=== PATIENT | female | born 1945 | race Caucasian/White ===

== ENCOUNTER → 2016-10-20 | Outpatient (CLI) | payer OTHER ==
[2016-10-20 08:27] LABS: HEMATOCRIT 45.2 % (37.0-47.0); MCH 30.5 pg (26.0-34.0); MCHC 33.1 g/dL (28.0-37.0); MCV 92.2 fL (80.0-100.0); RBC 4.9 mil/uL (4.20-5.00); RDW 14.2 % (10.5-14.5); WBC 11.8 thou/uL (4.0-11.0)
[2016-10-20 09:02] LABS: CALCIUM 9.2 mg/dL (8.5-10.1); CREATININE 0.8 mg/dL (0.6-1.0)
[2016-10-20 09:04] LABS: POTASSIUM 4.3 mmol/L (3.5-5.1)
[2016-10-20 09:09] LABS: ALBUMIN 3.7 g/dL (3.4-5.0); TOTAL BILIRUBIN 0.7 mg/dL (<0.1-1.0); TOTAL PROTEIN 7.7 g/dL (6.4-8.2)
== END ==
LOC: CAT 08:00
PROVIDERS: Internal Medicine Cardiovascular Disease
DX: I48.91 Unspecified atrial fibrillation (principal)

== ENCOUNTER 2016-10-27 06:36 | Observation (INO) | payer OTHER ==
[~2016-10-27] VITALS: Ht 167.6 cm; Wt 91.9 kg
--- NOTE | ~2016-10-27 | 2DMMODE ---
[address] [address] D/M-MODE ECHOCARDIOGRAM Name: JOSE R CALLOWAY Room #: 200-I ADM IN .R.#: [id number] Admission: 10/27/16 Attend Phys: Hunter Trujillo Discharge: Date of : 47 Date of Service: 10/28/16 1320 Report #: [id number] THIS REPORT FOR: //name// APPROVED REPORT Study performed: 10/28/2016 11:19:11 EXAM: Comprehensive 2D, Doppler, and color-flow Echocardiogram Patient Location: Bedside Room #: 200 Status: routine Other Information Study Quality: Good Indications S^P abblation Left Ventricle The left ventricle is normal size. There is normal left ventricular wall thickness. The left ventricular systolic function is normal. The left ventricular ejection fraction is within the normal range. LVEF is 55-60%. Right Ventricle The right ventricle is normal size. The right ventricular systolic function is normal. Atria Left atrium is dilated. Right atrium is dilated. Aortic Valve The aortic valve is normal in structure. Mitral Valve The mitral valve is normal in structure. Tricuspid Valve The tricuspid valve is normal in structure. Pulmonic Valve The pulmonary valve is normal in structure. Pericardium There is no pericardial effusion. [address] [address] D/M-MODE ECHOCARDIOGRAM Name: JOSE R CALLOWAY Room #: 200-I ADM IN .R.#: [id number] Admission: 10/27/16 Attend Phys: [facility] Discharge: Date of : 47 Date of Service: 10/28/16 1320 Report #: [id number] <Conclusion> The left ventricle is normal size. The left ventricular systolic function is normal. The left ventricular ejection fraction is within the normal range. LVEF is 55-60%. Left atrium is dilated. The tricuspid valve is normal in structure. <ELECTRONICALLY SIGNED> By: Mukesh Colunga MD 10/28/160 19 19 Mukesh Colunga MD /INF
--- NOTE | ~2016-10-27 | EKG ---
[address] [place] [address] ELECTROCARDIOGRAM REPORT Name: JOSE R CALLOWAY Room #: 206-[facility]..#: [id number] Admission: 10/27/16 Attend Phys: Hunter Trujillo MD Discharge: Date of : 47 Report #: [id number] THIS REPORT FOR: //name// 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 : 1945 Requested By: Hunter Trujillo Order Number: [id number] MD: Joaquim Kumar Measurements Intervals [place] Rate: 73 P: -30 TN: 193 QRS: -1 QRSD: 96 T: 36 QT: 354 QTc: 390 Interpretive Statements Sinus rhythm LVH with secondary repolarization abnormality Compared to ECG 10/27/2016 12:47:02 Left ventricular hypertrophy now present T wave abnormality is less prominent Prolonged QT interval no longer present Electronically Signed On 10-29-2016 8:37:25 CDT by Joaquim Kumar [email or web address] <ELECTRONICALLY SIGNED> By: Joaquim Kumar MD, [facility] 10/29/16 0837 06 06 Joaquim Kumar MD, [facility] /EPI
--- NOTE | ~2016-10-27 | EKG ---
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 : 1945 Requested By: Hunter Trujillo Order Number: [id number] MD: Joaquim Kumar Measurements Intervals [place] Rate: 77 P: -22 WI: 175 QRS: -7 QRSD: 87 T: 149 QT: 543 QTc: 615 Interpretive Statements Sinus rhythm T wave abnormality, consider anterolateral ischemia Prolonged QT interval No previous ECG available for comparison Electronically Signed On 10-27-2016 17:19:58 CDT by Joaquim Kumar [email or web address] <ELECTRONICALLY SIGNED> By: Joaquim Kumar MD, [facility] 10/27/16 1719 1247 124 Joaquim Kumar MD, [facility] /EPI
--- NOTE | ~2016-10-27 | HC ---
[facility] [place] [address] CONSULTATION Name: JOSE R CALLOWAY Room #: 206-P [facility]#: [id number] Admission: 10/27/16 Attend Phys: Hunter Trujillo MD Discharge: Date of : 47 Report #: [id number] THIS REPORT FOR: //name// CC: Stacie Trujillo DATE OF SERVICE: 10/28/2016 REFERRING PROVIDER: Hunter Trujillo MD. REASON FOR CONSULTATION: Cough, shortness of breath. HISTORY OF PRESENT ILLNESS: Our group was asked to see the patient in consultation while hospitalized at [facility], very pleasant 71-year-old woman with ongoing history of tobacco use, presented for atrial fibrillation ablation in about a 2-1/2 hour procedure done yesterday. The patient stated she might had minor cough prior to procedure, but had been feeling well, had just discontinued smoking just several days ago. No recent travel, no recent fevers, chills or sweats. No other underlying lung condition that she is aware of, no history of COPD or asthma. 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 Post-procedure yesterday evening noted perhaps some ____ smell in her hospital room and noted increasing cough and coming in paroxysms, coughing with ambulation, cough did not allow her to sleep. This morning started producing some green sputum, again no fevers, chills or sweats. No hemoptysis was appreciated. ALLERGIES: None known. PAST MEDICAL HISTORY: 1. History of hypertension. 2. History of atrial fibrillation. CURRENT INPATIENT MEDICATIONS: 1. Ibuprofen p.r.n. 2. Tylenol p.r.n. 3. Eliquis. 4. Aspirin. 5. Atorvastatin. 6. Flecainide. 7. Guaifenesin. 8. Maxzide. 9. P.r.n. hydrocodone. 10. Metoprolol. [address] [address] CONSULTATION Name: JOSE R CALLOWAY Room #: [facility]..#: [id number] Admission: 10/27/16 Attend Phys: Hunter Trujillo MD Discharge: Date of : 47 Report #: [id number] SOCIAL HISTORY: Active smoker up until recently. No significant alcohol consumption, currently is retired, previously worked at ____ with no significant environmental exposures there and as mentioned, lives alone. No pets. No recent travel. FAMILY HISTORY: Noncontributory for any significant pulmonary disease. REVIEW OF SYSTEMS: CONSTITUTIONAL: No fevers, chills, sweats, change in weight or appetite. ENT: No upper respiratory congestion, rhinorrhea or dysphagia. CARDIOVASCULAR: As described, history of recent atrial fibrillation with ablation GI. GASTROINTESTINAL: Has a history of significant reflux, but she states controlled on medications. No recent symptoms of reflux. GENITOURINARY: No dysuria, no frequency or hematuria. INTEGUMENT: Denies any rash. MUSCULOSKELETAL: No new joint pains or swelling, relatively active and mobile. PHYSICAL EXAMINATION: VITAL SIGNS: Afebrile, pulse 70s and regular, respiratory rate 18, blood pressure 135/74, oxygen saturation 93% on room air. GENERAL: This is a pleasant elderly woman, is not in any distress. HEENT: Clear oropharynx, Mallampati 2 airway, no thrush. No erythema. NECK: Supple, no lymphadenopathy. LUNGS: Diffuse low patch expiratory rhonchi noted throughout with some inspiratory rhonchi also appreciated, more so appreciated on expiration. CARDIOVASCULAR: Heart was regular. No murmurs noted. ABDOMEN: Soft, nontender, no masses, no hepatosplenomegaly. EXTREMITIES: Without edema. They are warm with 2+ pulses noted in the periphery. LABORATORY DATA: Chest radiograph is pending at this time. Recent CT scan of the chest done prior to ablation showed some linear scarring in the left upper lobe, consistent with prior wedge resection of a histoplasmoma, minimal parenchymal fibrosis, appears to be gravity dependent, should be consistent with atelectasis. No significant pulmonary pathology identified on my review. CBC revealed a white blood cell count 12,000, hemoglobin 16, hematocrit 47, platelet count 265. Chemistry profile essentially within normal limits. IMPRESSION: Post-procedure cough, somewhat productive with associated low pitched rhonchi which could be significant upper airway involvement, we consider the possibility that the patient may have aspirated around the time of procedure, associated with her history of reflux and sedation associated with procedure, also consider the possibility of a lower respiratory infection may have preceeded her procedure, other etiologies are procedure related phenomena, but it seemed [address] [address] CONSULTATION Name: JOSE R CALLOWAY Room #: 206-P [facility] Joe M.R.#: [id number] Admission: 10/27/16 Attend Phys: Hunter Trujillo MD Discharge: Date of : 47 Report #: [id number]. SUGGESTIONS: 1. Steroid burst. 2. We will add Augmentin. 3. Check chest radiograph. 4. Bronchodilators. 5. Await chest radiograph before further recommendations, might consider outpatient continuing treatment with inhaled albuterol inhaler, steroid taper and antibiotics if radiograph relatively clear. By: 1144 1340 Americo Avelar MD /nt
[2016-10-27] MEDS ORDERED: FOSAMAX 70 MG T70 MG PO (07:12)
[2016-10-27] MEDS ORDERED: ELIQUIS5 MG PO (07:13)
[2016-10-27] MEDS ORDERED: ASPIR 8181 M1 PO (07:13)
[2016-10-27] MEDS ORDERED: ATORVASTATIN CA40 MG PO (07:14)
[2016-10-27] MEDS ORDERED: NEXIUM20 MG PO (07:14)
[2016-10-27] MEDS ORDERED: FLECAINIDE ACET50 M1 PO (07:16)
[2016-10-27] MEDS ORDERED: TOPROL XL25 MG PO (07:16)
[2016-10-27] MEDS ORDERED: LOVAZA1000 MG PO (07:17)
[2016-10-27] MEDS ORDERED: MAXZIDE-25 MG1 EACH PO (07:18)
[2016-10-27 07:23] LABS: ABSOLUTE NEUTROPHILS 6.4 thou/uL (1.4-8.2); BASOPHILS 1.1 % (0.0-2.0); HEMOGLOBIN 15.6 gm/dL (12.0-15.0); LYMPHOCYTES 37.1 % (24.0-44.0); MCH 30.4 pg (26.0-34.0); MCHC 33.3 g/dL (28.0-37.0); MCV 91.2 fL (80.0-100.0); MONOCYTES 6.3 % (1.0-8.0); PLATELET COUNT 265 thou/uL (150-400); POLYS 53.5 % (36.0-66.0); RBC 5.15 mil/uL (4.20-5.00); RDW 14.2 % (10.5-14.5)
[2016-10-27 07:29] VITALS: BP 139/79
[2016-10-27 07:29] LABS: MANUAL DIFF NO
[2016-10-27 07:33] LABS: CALCIUM 9.3 mg/dL (8.5-10.1); CREATININE 1.1 mg/dL (0.6-1.0)
[2016-10-27 07:38] LABS: ALBUMIN 3.5 g/dL (3.4-5.0); TOTAL BILIRUBIN 0.3 mg/dL (<0.1-1.0); TOTAL PROTEIN 7.3 g/dL (6.4-8.2)
[2016-10-27 07:44] LABS: APTT 26.8 Seconds (24.5-32.8); PROTIME 9.4 Seconds (9.3-11.4)
[2016-10-27 15:00] VITALS: BP 118/70
[2016-10-27 20:17] VITALS: BP 120/72
[2016-10-27 23:17] VITALS: BP 133/73
[2016-10-28 03:21] VITALS: BP 135/74
[2016-10-28 07:00] VITALS: BP 131/70
[2016-10-28 11:00] VITALS: BP 141/81
[2016-10-28 15:54] VITALS: BP 142/81
[2016-10-28 19:49] VITALS: BP 151/81
[2016-10-29 03:36] VITALS: BP 120/64
[2016-10-29 07:15] VITALS: BP 151/93
[2016-10-29 07:41] VITALS: BP 151/93
[2016-10-29 10:09] VITALS: BP 151/93
[2016-10-29] MEDS ORDERED: CEFUROXIME500 MG PO (10:10)
[2016-10-29] MEDS ORDERED: VENTOLIN HFA 1818 GM INH (10:11)
[2016-10-29] MEDS ORDERED: PREDNISONE 20 M20 MG PO (10:11)
== END 2016-10-29 10:54 | disposition home or self-care (01) ==
LOC: CATH → 2N 13:56
PROVIDERS: Internal Medicine Cardiovascular Disease
DX: I48.0 Paroxysmal atrial fibrillation (principal); I10 Essential (primary) hypertension
CPT/HCPCS: 62110; 62900; 70005

== ENCOUNTER → 2018-12-27 | Outpatient (CLI) | payer OTHER ==
[~2018-12-27] MED LIST: ASPIR 8181 M1 PO; ATORVASTATIN CA40 MG PO; CEFUROXIME500 MG PO; ELIQUIS5 MG PO; FLECAINIDE ACET50 M1 PO; FOSAMAX 70 MG T70 MG PO; LOVAZA1000 MG PO; MAXZIDE-25 MG1 EACH PO; NEXIUM20 MG PO; PREDNISONE 20 M20 MG PO; TOPROL XL25 MG PO; VENTOLIN HFA 1818 GM INH
== END ==
LOC: RAD 14:03
DX: R06.02 Shortness of breath (principal); R06.00 Dyspnea, unspecified; I70.0 Atherosclerosis of aorta; M51.34 Other intervertebral disc degeneration, thoracic region; Z95.811 Presence of heart assist device

== ENCOUNTER → 2020-01-31 | Outpatient (CLI) | payer OTHER | LOC: SJCVC 16:31 | PROVIDERS: ATTEND Internal Medicine Cardiovascular Disease | DX: R94.31 Abnormal electrocardiogram [ECG] [EKG] (principal); I49.3 Ventricular premature depolarization; I48.91 Unspecified atrial fibrillation; I10 Essential (primary) hypertension; Z79.899 Other long term (current) drug therapy; Z87.891 Personal history of nicotine dependence ==

== ENCOUNTER → 2021-01-28 | Outpatient (CLI) | payer OTHER | LOC: SJCVCIMAG 08:39 | PROVIDERS: ATTEND Internal Medicine Cardiovascular Disease | DX: R94.31 Abnormal electrocardiogram [ECG] [EKG] (principal); I10 Essential (primary) hypertension; E78.00 Pure hypercholesterolemia, unspecified; I49.3 Ventricular premature depolarization; J44.9 Chronic obstructive pulmonary disease, unspecified; E78.5 Hyperlipidemia, unspecified; I48.0 Paroxysmal atrial fibrillation; G47.33 Obstructive sleep apnea (adult) (pediatric); Z90.49 Acquired absence of other specified parts of digestive tract; Z98.890 Other specified postprocedural states; Z87.891 Personal history of nicotine dependence; Z79.899 Other long term (current) drug therapy ==

== ENCOUNTER → 2021-02-18 | Outpatient (CLI) | payer OTHER | LOC: CAT 11:17 | PROVIDERS: ATTEND Internal Medicine Cardiovascular Disease | DX: Z13.6 Encounter for screening for cardiovascular disorders (principal); I25.10 Atherosclerotic heart disease of native coronary artery without angina pectoris; E78.00 Pure hypercholesterolemia, unspecified ==

== ENCOUNTER → 2021-03-03 | Outpatient (CLI) | payer OTHER | LOC: SJCVCIMAG 08:07 | PROVIDERS: ATTEND Internal Medicine Cardiovascular Disease | DX: I48.91 Unspecified atrial fibrillation (principal); I49.3 Ventricular premature depolarization; E78.5 Hyperlipidemia, unspecified; J44.9 Chronic obstructive pulmonary disease, unspecified; R93.1 Abnormal findings on diagnostic imaging of heart and coronary circulation; Z87.891 Personal history of nicotine dependence; Z79.899 Other long term (current) drug therapy ==